=== PATIENT | male | born 1955 | race Caucasian/White ===

== ENCOUNTER 2022-09-27 16:57 | Inpatient (IN) | payer MEDICARE, OTHER ==
[2022-09-27] MEDS ORDERED: Acetaminophen 650 MG Supp RECTAL PRN (19:41)
[2022-09-27] MEDS ORDERED: Acetaminophen 325 MG Tab PO PRN (19:41)
[2022-09-27] MEDS ORDERED: Ondansetron 4 MG Tab.DIS PO PRN (20:18)
[2022-09-27] MEDS ORDERED: Ondansetron 4 MG/2 ML SDV IV PRN (20:18)
[2022-09-27] MEDS ORDERED: Bisacodyl 10 MG Supp RECTAL PRN (20:18)
[2022-09-27] MEDS ORDERED: Morphine 15 MG Tab.ER PO PRN (20:18)
[2022-09-27] MEDS ORDERED: Sennosides/Docusate Sodium 50-8.6 MG Tab PO PRN (20:18)
[2022-09-27] MEDS ORDERED: Albuterol/Ipratropium 3.0-0.5 MG/3 ML Neb Soln INH SCH (20:30)
[2022-09-27] MEDS ORDERED: Non-Formulary Medication 1 Each (Insulin Aspart 100 UNIT/ML Vial) SQ SCH (20:30)
[2022-09-27] MEDS ORDERED: Insulin Lispro 100 Units/ML 3 ML Vial SUBCUT SCH (21:15)
[2022-09-27] MEDS: Morphine 15 MG Tab PO SCH (21:24)
[2022-09-28] MEDS ORDERED: Albuterol/Ipratropium 3.0-0.5 MG/3 ML Neb Soln INH SCH (06:00)
[2022-09-28] MEDS ORDERED: Glucagon,Human Recombinant 1 MG Vial IM PRN ×2 (07:23→07:57)
[2022-09-28] MEDS ORDERED: 50% Dextrose in Water 50 ML Syringe IVPUSH PRN ×2 (07:23→07:57)
[2022-09-28] MEDS ORDERED: Azithromycin 500 MG Vial IV SCH (08:00)
[2022-09-28] MEDS ORDERED: Non-Formulary Medication 1 Each (Insulin Aspart 100 UNIT/ML Vial) SQ SCH (08:00)
[2022-09-28] MEDS ORDERED: Sodium Chloride 0.9% 250 ML ONE (08:17)
[2022-09-28] MEDS: Albuterol/Ipratropium 3.0-0.5 MG/3 ML Neb Soln INH SCH ×4 (08:32→19:30)
[2022-09-28] MEDS: Azithromycin 500 MG in Sodium Chloride 0.9% 250 ML IV SCH (08:34)
[2022-09-28] MEDS: methylPREDNISolone Sodium Succinate 40 MG/1 ML SDV IV SCH (08:35)
[2022-09-28] MEDS: cefTRIAXone 2 GM Vial IV SCH (08:43)
[2022-09-28] MEDS: Acyclovir 200 MG Cap PO SCH ×2 (08:51→19:30)
[2022-09-28] MEDS: Escitalopram 10 MG Tab PO SCH (08:52)
[2022-09-28] MEDS: Metoprolol Succinate 25 MG Tab.ER PO SCH ×2 (08:53→20:02)
[2022-09-28] MEDS: Isosorbide Mononitrate 60 MG Tab.ER PO SCH (08:53)
[2022-09-28] MEDS: Apixaban 5 MG Tab PO SCH ×2 (08:53→19:30)
[2022-09-28] MEDS: ROSUVASTATIN CALCIUM 40 MG PO SCH (08:53)
[2022-09-28] MEDS: amLODIPine 2.5 MG Tab PO SCH (08:54)
[2022-09-28] MEDS: Morphine 15 MG Tab PO SCH ×2 (08:54→19:31)
[2022-09-28] MEDS: Pregabalin 25 MG Cap PO SCH ×3 (08:55→19:30)
[2022-09-28] MEDS: Insulin Lispro 100 Units/ML 3 ML Vial SUBCUT SCH ×3 (08:56→17:38)
[2022-09-28] MEDS ORDERED: Polyethylene Glycol 3350 Powder 17 GM Packet PO PRN (12:10)
[2022-09-28] MEDS: Sennosides/Docusate Sodium 50-8.6 MG Tab PO SCH (19:30)
[2022-09-28] MEDS: Insulin Glarg,Human.Rec.Analog 100 Unit/ML SUBCUT SCH (19:44)
[2022-09-28] MEDS: [UNRECOGNIZED DRUG - OTHER] PO SCH (19:44)
[2022-09-29] MEDS: cefTRIAXone 2 GM Vial IV SCH (07:58)
[2022-09-29] MEDS: Albuterol/Ipratropium 3.0-0.5 MG/3 ML Neb Soln INH SCH ×4 (07:59→19:58)
[2022-09-29] MEDS: Azithromycin 500 MG in Sodium Chloride 0.9% 250 ML IV SCH (07:59)
[2022-09-29] MEDS: Isosorbide Mononitrate 60 MG Tab.ER PO SCH (08:00)
[2022-09-29] MEDS: Pregabalin 25 MG Cap PO SCH ×3 (08:00→20:01)
[2022-09-29] MEDS: Escitalopram 10 MG Tab PO SCH (08:00)
[2022-09-29] MEDS: Metoprolol Succinate 25 MG Tab.ER PO SCH ×2 (08:00→20:03)
[2022-09-29] MEDS: Acyclovir 200 MG Cap PO SCH ×2 (08:01→20:05)
[2022-09-29] MEDS: amLODIPine 2.5 MG Tab PO SCH (08:01)
[2022-09-29] MEDS: Apixaban 5 MG Tab PO SCH ×2 (08:01→19:58)
[2022-09-29] MEDS: Insulin Lispro 100 Units/ML 3 ML Vial SUBCUT SCH ×3 (08:04→17:59)
[2022-09-29] MEDS: ROSUVASTATIN CALCIUM 40 MG PO SCH (08:15)
[2022-09-29] MEDS ORDERED: Morphine 15 MG Tab PO PRN (08:24)
[2022-09-29] MEDS ORDERED: Morphine 15 MG Tab.ER PO SCH (08:30)
[2022-09-29] MEDS: methylPREDNISolone Sodium Succinate 40 MG/1 ML SDV IV SCH (11:51)
[2022-09-29] MEDS: Morphine 15 MG Tab PO SCH (11:51)
[2022-09-29] MEDS ORDERED: predniSONE 20 MG Tab PO SCH (12:00)
[2022-09-29] MEDS: Insulin Glarg,Human.Rec.Analog 100 Unit/ML SUBCUT SCH (19:59)
[2022-09-29] MEDS: Sennosides/Docusate Sodium 50-8.6 MG Tab PO SCH (20:01)
[2022-09-29] MEDS: [UNRECOGNIZED DRUG - OTHER] PO SCH (20:02)
[2022-09-29] MEDS: Morphine 15 MG Tab.ER PO SCH (20:04)
[2022-09-30] MEDS: Albuterol/Ipratropium 3.0-0.5 MG/3 ML Neb Soln INH SCH ×2 (07:44→11:48)
[2022-09-30] MEDS: Isosorbide Mononitrate 60 MG Tab.ER PO SCH (07:48)
[2022-09-30] MEDS: Escitalopram 10 MG Tab PO SCH (07:48)
[2022-09-30] MEDS: Apixaban 5 MG Tab PO SCH (07:48)
[2022-09-30] MEDS: Pregabalin 25 MG Cap PO SCH (07:49)
[2022-09-30] MEDS: Morphine 15 MG Tab.ER PO SCH (07:50)
[2022-09-30] MEDS: amLODIPine 2.5 MG Tab PO SCH (07:51)
[2022-09-30] MEDS: Acyclovir 200 MG Cap PO SCH (07:52)
[2022-09-30] MEDS: Metoprolol Succinate 25 MG Tab.ER PO SCH (07:52)
[2022-09-30] MEDS: ROSUVASTATIN CALCIUM 40 MG PO SCH (07:53)
[2022-09-30] MEDS: Insulin Lispro 100 Units/ML 3 ML Vial SUBCUT SCH (07:54)
[2022-09-30] MEDS ORDERED: Sulfamethoxazole/Trimethoprim 800-160 MG Tab PO SCH (08:00)
[2022-09-30] MEDS ORDERED: Morphine 4 MG/ML VIAL IV ONE (08:47)
[2022-09-30] MEDS ORDERED: Naloxone 2 MG/2 ML Syringe IVPUSH PRN (08:47)
[2022-09-30] MEDS ORDERED: LORazepam 2 MG/ML Syringe IVPUSH ONE (10:17)
[2022-09-30] MEDS ORDERED: HYDROmorphone 0.5 MG/0.5 ML Syringe IVPUSH ONE (11:03)
[2022-09-30] MEDS ORDERED: Hyoscyamine 0.125 MG/ML Bottle PO PRN (11:24)
[2022-09-30] MEDS ORDERED: HYDROmorphone 1 MG/ML Syringe IVPUSH PRN (11:32)
[2022-09-30] MEDS ORDERED: LORazepam 2 MG/ML Syringe IVPUSH PRN (12:38)
== END 2022-09-30 13:10 | disposition expired | DRG 194 ==
LOC: CC.MS 19:08
PROVIDERS: ADMIT Nurse Practitioner; ATTEND Nurse Practitioner
DX: J12.2 Parainfluenza virus pneumonia (principal); C90.00 Multiple myeloma not having achieved remission; N17.9 Acute kidney failure, unspecified; Z66 Do not resuscitate; Z51.5 Encounter for palliative care; D64.9 Anemia, unspecified; Z79.4 Long term (current) use of insulin; Z79.52 Long term (current) use of systemic steroids; Z79.899 Other long term (current) drug therapy
CPT/HCPCS: 51702; 82947; 94640; 97161-GP; 99306; 99307; 99315; A9270-GY; J0456; J0696; J1170; J1642; J1815-GY; J2060; J2270; J2920; J7050; J7512; J7620-GY